=== PATIENT | female | born 1990 | race Caucasian/White ===

== ENCOUNTER 2020-05-22 20:58 | Emergency (ER) | payer OTHER ==
[~2020-05-22 20:58] MED LIST: FIORICET1 EACH PO; IBUPROFEN800 MG PO; ROBAXIN500 MG PO
== END 2020-05-23 01:43 | disposition home or self-care (01) ==
LOC: FER 20:58
DX: O20.9 Hemorrhage in early pregnancy, unspecified (principal); Z3A.10 10 weeks gestation of pregnancy
CPT/HCPCS: 36415; 84702; 86900; 86901; 99284